=== PATIENT | male | born 1965 | race Caucasian/White ===

== ENCOUNTER 2020-09-04 10:25 | Emergency (ER) | payer OTHER, SELFPAY ==
[2020-09-04 10:31] VITALS: BP 128/87; PULSE 87; RESP 16; TEMP 36.9; O2SAT 95
[2020-09-04] MEDS: Ketorolac 15 MG/ML VIAL IVP (11:23)
[2020-09-04] MEDS: Normal Saline 1,000 ML 1000 ML IV (11:23)
[2020-09-04] MEDS: Dexamethasone 10 MG/ML VIAL IVP (11:23)
[2020-09-04] MEDS: Acetaminophen Solution 650 MG/20.3 ML CUP PO (11:29)
--- NOTE | 2020-09-04 11:33 | W.ED.GENAD ---
Discharge Plan Disposition Patient Disposition: HOME Condition: Good Discharge Details Clinical Impression: Aphthous ulcer, Odynophagia Primary Care Provider: May,Local ED Provider: Oanh Ordaz Home Meds and New Rx's Prescriptions: New lidocaine HCl 4 % (40 mg/mL) solution 1 applic mucous membrane BID Qty: 5 RF: 0 dexamethasone [Decadron] 6 mg tablet 6 mg PO DAILY Qty: 4 RF: 0 Discharge Instructions Additional Instructions: Take Motrin 600 mg every 8 hours with food Take Tylenol 650 mg to 1 g every 6 hours Take Decadron daily, you received a dose today, do not take your next dose until tomorrow use the lidocaine intermittently Only use lidocaine as prescribed I recommend following up with your doctor, you may need rheumatology follow-up, something you may want to address with your doctor as to whether or not this could potentially be something called Behcet's syndrome Without additional testing, we are unable to officially make this diagnosis, you should have additional screening Dehydrated Stay away from spicy foods, salty food, acidic foods such as tomatoes and orange Discharge Data Discharge Date/Time-TO BE ENTERED AT DEPARTURE: 09/04/20 13:10 Medical Decision Making 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 with her no other rheumatological disease that is causing his recurrent symptoms He does not know her baseline which is pending He will need rheumatology or PCP follow-up I am treating him with steroids and viscous lidocaine He is feeling dramatically improved, there is no evidence of airway compromise He is maintaining secretions without difficulty actually reports significant symptomatic improvement at time of discharge home Is discharged home in stable condition with stable vitals, he is recommended to have rechecked in 48 hours My suspicion for strep pharyngitis patient has recurrent symptoms with aphthous ulcers, this could be a viral syndrome certainly Herpes is pending He did elevated CRP though I think following up with rheumatology would be beneficial He does live in [place] so he will be followed at the [facility] when he returns Differential Diagnosis Differential Diagnosis: Peritonsillar abscess, retropharyngeal abscess, herpes, depression, pharyng Medical Records Medical records reviewed: Yes I reviewed the patient's medical records. HPI 54-year-old gentleman presents with report of sore throat. He is visiting from [place] and states that he has a sore throat and difficulty swallowing secondary to pain. He states he had this recurrently has been having sore throat with ulcerations for the past 20+ years. He does have positive for but never had blood work or seen rheumatology. He denies any chest pain or shortness of breath. He denies dizziness or weakness. He denies globus sensation. He has had viscous lidocaine intermittently and this is mildly help with his symptoms. He has been in the state for approximately a month and a half for a family emergency. He is otherwise reportedly healthy. He is typically managed at the [facility]. General Date/Time Provider Initiated Documentation: 09/04/20 10:26. Related Data Home Medications Medication Instructions Recorded Confirmed dexamethasone [Decadron] 6 mg PO DAILY #4 tab 09/04/20 lidocaine HCl 1 applic MUCOUS MEMBRANE BID #5 ml 09/04/20 Previous Rx's Medication Instructions Recorded dexamethasone [Decadron] 6 mg PO DAILY #4 tab 09/04/20 lidocaine HCl 1 applic MUCOUS MEMBRANE BID #5 ml 09/04/20 Allergies Allergy/AdvReac Type Severity Reaction Status Date / Time No Known Allergies Allergy Unverified 09/04/20 10:34 General Stated Complaint: Sorethroat NOELLE: 2 Review of Systems Narrative: Review of systems negative x7 aside from where indicated in HPI specifically no globus sensation in throat, rashes, vomiting Eyes Comments: No PFSH Social History Smoking/Tobacco Use Status: Never Smoking risk assessment performed?: Yes Alcohol Intake: current Alcohol Intake frequency: 0-2 drinks per day Drug use: Never Substance use type: does not use Do you feel safe at home: Yes Do you feel safe in your relationship?: Yes Exam Const General: cooperative and healthy appearing [facility] Other: Uvula midline, uvulitis noted, aphthous ulcers to hard palate extending onto the soft palate, maintaining secretions, tonsillar exudate, no evidence of retropharyngeal abscess or peritonsillar abscess clinically Submandibular lymphadenopathy, hoarse voice, no stridor Neuro General: patient alert and patient oriented x3 Course Vital Signs Vital signs: Vital Signs Temperature 36.9 C 09/04/20 10:31 Pulse 87 09/04/20 10:31 Respiratory Rate 16 09/04/20 10:31 Blood Pressure 128/87 09/04/20 10:31 Pulse Oximetry 95 09/04/20 10:31 Temperature 36.9 C 09/04/20 10:31 Temperature Source Skin 09/04/20 10:31 Pulse 87 02/06/21 10:31 Respiratory Rate 16 09/04/20 10:31 Respiratory Effort 09/04/20 10:40 Blood Pressure 128/87 09/04/20 10:31 Blood Pressure Position Sitting 09/04/20 10:31 Pulse Oximetry 95 09/04/20 10:31 Oxygen Delivery Method Room Air 09/04/20 10:31 Oxygen Flow Rate 0 09/04/20 10:31 Pain Level 10 09/04/20 11:29 Lab/Test Results Lab/Test Results: 09/04/20 10:58 Tonsil - Left Streptococcus Screen ([facility]) - Pending Laboratory Tests Range/Units 09/04/20 10:55 HSV Source Description Cancelled HSV I DNA PCR Cancelled HSV II DNA PCR Cancelled POC Strep Test-[facility](Rapid) Start: 09/04/20 10:53 Freq: .Rapid Strep Test Status: Active Protocol: Document 09/04/20 10:54 MCG (Rec: 09/04/20 10:54 MCG [id number]) Strep test-[facility](Rapid)-POC POC-Strep test-[facility] (Rapid) Negative POC-Strep test-[facility] (Rapid) Negative
[2020-09-04 11:38] LABS: Abs Immature Grans 0.04 10^3/uL (0.0-0.06); Absolute Basophil Count 0.02 10^3/uL (0.0-0.2); Absolute Eosinophil Count 0.19 10^3/uL (0.0-0.7); Absolute Lymphocyte Count 1.64 10^3/uL (1.2-3.4); Absolute Monocyte Count 0.99 10^3/uL (0.1-0.8); Basophils % 0.2; Eosinophils % 1.8; HCT 47.3 % (40.0-50.0); HGB 16.4 g/dL (13.5-17.5); Immature Grans % 0.4; Lymphocytes % 15.8; MCH 29.7 pg (27.0-33.0); MCHC 34.7 % (32.0-36.0); MCV 85.5 fL (80-95); MPV 10.1 fL (8.0-11.0); Monocytes % 9.5; Neutrophils % 72.3; Nucleated RBC 0 %; Platelet Count 187 10^3/uL (130-400); RBC 5.53 10^6/uL (4.36-5.78); RDW-SD 37.6 fL; WBC 10.38 10^3/uL (4.4-10.8)
[2020-09-04 11:52] LABS: ALT 37 U/L (16-63); AST 21 U/L (15-37); Albumin 4.3 g/dL (3.4-5.0); Alkaline Phosphatase 72 U/L (46-116); Anion Gap 8.2 mmol/L (3-11); BUN 13 mg/dL (7-18); Bilirubin, Total 1.3 mg/dL (0.2-1.0); C-Reactive Protein 1.26 mg/dL (0.0-0.3); CO2 28.8 mmol/L (21.0-32.0); CREATININE 1.1 mg/dL (0.70-1.30); Calcium 8.9 mg/dL (8.5-10.1); Chloride 106 mmol/L (98-107); Glucose 96 mg/dL (74-106); Potassium 3.8 mmol/L (3.5-5.1); Sodium 143 mmol/L (136-145); Total Protein 7.7 g/dL (6.4-8.2)
[2020-09-04 12:51] VITALS: BP 120/81; PULSE 80; RESP 16; TEMP 36.7; O2SAT 95
[2020-09-07 01:46] LABS: HSV 1 PCR, Blood Negative (Negative); HSV 2 PCR, Blood Negative (Negative)
== END 2020-09-04 13:10 | disposition home or self-care (01) ==
PROVIDERS: Emergency Provider Physician Assistant
DX: K12.0 Recurrent oral aphthae (principal); R13.10 Dysphagia, unspecified
CPT/HCPCS: 36415; 80053; 87529; 87880; 96361; 96374; 96375; 99284; 85025; 86140; 87081; J1100; J1885